=== PATIENT | female | born 1995 | race African-American/Black ===

== ENCOUNTER 2022-05-30 15:29 | Emergency (ER) | payer MEDICAID ==
[~2022-05-30] VITALS: Ht 165.1 cm; Wt 114.1 kg
[2022-05-30] MEDS ORDERED: ASPI-1450 PO (15:38)
[2022-05-30] MEDS ORDERED: PNV1TABL77 PO (15:38)
[2022-05-30] MEDS ORDERED: LIDOCAINE 5% TRANSDERMAL PATCH TD ONE (16:15)
[2022-05-30 16:20] LABS: APPEARANCE,URINE HAZY (CLEAR); BILIRUBIN,URINE NEGATIVE (NEGATIVE); GLUCOSE, URINE (UA) NEGATIVE (NEGATIVE); KETONES,URINE 40-60 mg/dL (NEGATIVE); LEUKOCYTE ESTERASE ,URINE NEGATIVE (NEGATIVE); NITRATE,URINE NEGATIVE (NEGATIVE); OCCULT BLOOD,URINE NEGATIVE (NEGATIVE); PROTEIN,URINE TRACE mg/dL (NEGATIVE); SPECIFIC GRAVITIY, URINE 1.023 (1.003-1.030); UROBILINOGEN,URINE <=1.0 mg/dL (<=1.0)
[2022-05-30 16:41] LABS: BASOPHILS % (AUTO) 0.3 % (0.0-2.0); EOSINOPHILS % (AUTO) 0.6 % (1.0-6.0); HEMATOCRIT 38.3 % (36-46); HEMOGLOBIN 12.6 g/dL (12.0-16.0); LYMPHOCYTES # (AUTO) 1.9 K/uL (1.0-4.8); LYMPHOCYTES % (AUTO) 17.7 % (22.0-44.0); MEAN CORPUSCULAR HEMOGLOBIN 27.2 pg (26.0-34.0); MEAN CORPUSCULAR HGB CONC 32.9 G/dL (31.0-37.0); MEAN CORPUSCULAR VOLUME 83 fL (80-100); MONOCYTES # (AUTO) 0.7 K/uL (0.1-1.0); NEUTROPHILS # (AUTO) 7.8 K/uL (1.8-7.7); NEUTROPHILS % (AUTO) 74.4 % (40.0-70.0); PLATELET COUNT (AUTO) 156 K/uL (150-450); RED BLOOD CELL COUNT(AUTO) 4.63 MIL/uL (4.00-5.20); RED CELL DISTRIBUTION WIDTH 13.5 % (11.5-14.5)
[2022-05-30 16:49] LABS: ANION GAP 10 mmol/L (8-16); CALCIUM, TOTAL 8.8 mg/dL (8.8-10.5); CARBON DIOXIDE 23 mmol/L (22-29); CHLORIDE 103 mmol/L (98-107); GLOMERULAR FILTR. RATE CALC > 60 mL/min (>60); GLUCOSE,RANDOM 112 mg/dL (70-110); POTASSIUM 3.1 mmol/L (3.5-5.1); SODIUM SERUM 136 mmol/L (136-145); UREA NITROGEN, BLOOD 6 mg/dL (7-18)
[2022-05-30 16:55] LABS: ALANINE AMINOTRANSFERASE 51 U/L (12-78); ALBUMIN 3.4 g/dL (3.4-5.0); ALKALINE PHOSPHATASE 48 U/L (46-116); ASPARTATE AMINOTRANSFERASE 37 U/L (15-37); BILIRUBIN,TOTAL 0.2 mg/dL (0.1-1.0); TOTAL PROTEIN, SERUM 6.8 g/dL (6.4-8.2)
[2022-05-30] MEDS ORDERED: POTASSIUM CHLORIDE 20 MEQ ER TABLET PO ONE (17:15)
[2022-05-30 17:35] LABS: HCG,QUANTITATIVE 8023 mIU/mL (0-6)
[2022-05-30 18:30] VITALS: BP 119/67
== END 2022-05-30 18:55 | disposition home or self-care (01) ==
LOC: EMS 15:41
DX: O26.92 Pregnancy related conditions, unspecified, second trimester (principal); M54.50 Low back pain, unspecified; Z3A.18 18 weeks gestation of pregnancy
CPT/HCPCS: 76770; 76805; 80053; 81003; 84702; 85025; 86901; 99284

== ENCOUNTER 2024-05-18 06:42 | Emergency (ER) | payer MEDICAID ==
[~2024-05-18] VITALS: Ht 165.1 cm; Wt 113.6 kg
[~2024-05-18 06:42] MED LIST: ASPI-1450 PO; PNV1TABL77 PO
[2024-05-18] MEDS: HYDROCODONE/ACETAMINOPHEN 5-325 MG TABLET PO ONE (07:59)
[2024-05-18] MEDS: KETOROLAC TROMETHAMINE 60 MG/2 ML VIAL IM ONE (07:59)
[2024-05-18] MEDS ORDERED: HYDR-4062 PO (08:56)
[2024-05-18] MEDS ORDERED: IBUP-1554 PO (08:56)
[2024-05-18 09:15] VITALS: BP 135/94; PULSE 91; RESP 18; O2SAT 100
== END 2024-05-18 09:27 | disposition home or self-care (01) ==
LOC: EMS 06:43
DX: S86.812A Strain of other muscle(s) and tendon(s) at lower leg level, left leg, initial encounter (principal); F12.90 Cannabis use, unspecified, uncomplicated; Z79.82 Long term (current) use of aspirin; Z90.89 Acquired absence of other organs; W13.8XXA Fall from, out of or through other building or structure, initial encounter; Y93.89 Activity, other specified; Y92.89 Other specified places as the place of occurrence of the external cause; Y99.8 Other external cause status
CPT/HCPCS: 99284; 29505; 84703; 36415; 73562; 96372; J1885

== ENCOUNTER 2024-07-12 16:01 | Emergency (ER) | payer MEDICAID ==
[~2024-07-12] VITALS: Ht 152.4 cm; Wt 113.6 kg
[~2024-07-12 16:01] MED LIST changes: +HYDR-4062 PO; +IBUP-1554 PO
[2024-07-12 16:13] VITALS: TEMP 98.3
[2024-07-12] MEDS: SODIUM CHLORIDE 0.9% 1,000 ML IV ONE (17:03)
[2024-07-12 17:14] LABS: BASOPHILS % (AUTO) 0.5 % (0.0-2.0); EOSINOPHILS % (AUTO) 0.3 % (1.0-6.0); HEMATOCRIT 43.3 % (36-46); HEMOGLOBIN 14.1 g/dL (12.0-16.0); LYMPHOCYTES # (AUTO) 1.4 K/uL (1.0-4.8); LYMPHOCYTES % (AUTO) 15.6 % (22.0-44.0); MEAN CORPUSCULAR HEMOGLOBIN 27.5 pg (26.0-34.0); MEAN CORPUSCULAR HGB CONC 32.5 G/dL (31.0-37.0); MEAN CORPUSCULAR VOLUME 85 fL (80-100); MONOCYTES # (AUTO) 0.6 K/uL (0.1-1.0); MONOCYTES % (AUTO) 6.8 % (2.0-9.0); NEUTROPHILS % (AUTO) 76.8 % (40.0-70.0); PLATELET COUNT (AUTO) 204 K/uL (150-450); RED BLOOD CELL COUNT(AUTO) 5.12 MIL/uL (4.00-5.20); RED CELL DISTRIBUTION WIDTH 13.8 % (11.5-14.5); WHITE BLOOD COUNT (AUTO) 9.2 K/uL (4.5-11.0)
[2024-07-12 17:23] LABS: ANION GAP 13 mmol/L (8-16); CALCIUM, TOTAL 8.5 mg/dL (8.8-10.5); CARBON DIOXIDE 26 mmol/L (22-29); CHLORIDE 107 mmol/L (98-107); CREATININE 0.99 mg/dL (0.60-1.30); GLOMERULAR FILTR. RATE CALC > 60 mL/min (>60); GLUCOSE,RANDOM 69 mg/dL (70-110); POTASSIUM 3.2 mmol/L (3.5-5.1); SODIUM SERUM 146 mmol/L (136-145); UREA NITROGEN, BLOOD 4 mg/dL (7-18)
[2024-07-12 17:36] LABS: HCG,QUANTITATIVE < 1 mIU/mL (0-6); LIPASE 16 U/L (16-77)
[2024-07-12 18:30] VITALS: BP 138/87; PULSE 89; RESP 18; O2SAT 98
== END 2024-07-12 19:03 | disposition home or self-care (01) ==
LOC: EMS 16:01
DX: E86.0 Dehydration (principal); R55 Syncope and collapse; F12.90 Cannabis use, unspecified, uncomplicated; Z79.82 Long term (current) use of aspirin; Z79.899 Other long term (current) drug therapy; Z90.89 Acquired absence of other organs
CPT/HCPCS: 99283; 96360; 80048; 83690; 84702; 85025; 36415; J7030; 99284

== ENCOUNTER 2025-01-07 04:03 | Emergency (ER) | payer MEDICAID ==
[~2025-01-07] VITALS: Ht 165.1 cm; Wt 113.6 kg
[~2025-01-07 04:03] MED LIST changes: -PNV1TABL77 PO
[2025-01-07 04:19] VITALS: BP 136/70; PULSE 90; RESP 18; TEMP 98.2; O2SAT 100
[2025-01-07 05:19] LABS: APPEARANCE,URINE CLEAR (CLEAR); GLUCOSE, URINE (UA) NEGATIVE (NEGATIVE); LEUKOCYTE ESTERASE ,URINE NEGATIVE (NEGATIVE); NITRATE,URINE NEGATIVE (NEGATIVE); OCCULT BLOOD,URINE NEGATIVE (NEGATIVE); PH,URINE DRUG SCREEN 6.0 (5.0-8.0); SPECIFIC GRAVITIY, URINE 1.005 (1.003-1.030)
[2025-01-07 05:26] LABS: ALCOHOL, URINE DRUG SCREEN POSITIVE (NEGATIVE); AMPHET/METH SCREEN,URINE NEGATIVE (NEGATIVE); BARBITURATE SCREEN, URINE NEGATIVE (NEGATIVE); CANNABINOID SCREEN,URINE POSITIVE (NEGATIVE); COCAINE SCREEN,URINE NEGATIVE (NEGATIVE); METHADONE SCREEN, URINE NEGATIVE (NEGATIVE)
[2025-01-07] MEDS ORDERED: IBUP-1492 PO (05:35)
[2025-01-07] MEDS: KETOROLAC TROMETHAMINE 30 MG/ML VIAL IM ONE (05:45)
== END 2025-01-07 06:14 | disposition home or self-care (01) ==
LOC: EMS 04:03
DX: R07.89 Other chest pain (principal); F12.90 Cannabis use, unspecified, uncomplicated; Z79.82 Long term (current) use of aspirin; Z79.899 Other long term (current) drug therapy; Z90.89 Acquired absence of other organs
CPT/HCPCS: 99284; 93005; 96372; 80307; 81003; J1885

== ENCOUNTER 2025-01-21 12:56 | Emergency (ER) | payer MEDICAID ==
[~2025-01-21] VITALS: Ht 165.1 cm; Wt 113.6 kg
[~2025-01-21 12:56] MED LIST changes: +IBUP-1492 PO
[2025-01-21 12:59] VITALS: TEMP 98.6
[2025-01-21] MEDS ORDERED: ETON68IM4 SD (13:04)
[2025-01-21] MEDS: ACETAMINOPHEN 325 MG TABLET PO ONE (15:49)
[2025-01-21 16:15] VITALS: BP 147/68; PULSE 98; RESP 16; O2SAT 99
[2025-01-21] MEDS: KETOROLAC TROMETHAMINE 30 MG/ML VIAL IM ONE (18:19)
[2025-01-21] MEDS ORDERED: TRAM50TA5 PO (18:25)
== END 2025-01-21 19:09 | disposition home or self-care (01) ==
LOC: EMS 12:56
DX: S93.402A Sprain of unspecified ligament of left ankle, initial encounter (principal); F12.90 Cannabis use, unspecified, uncomplicated; Z90.89 Acquired absence of other organs; W22.8XXA Striking against or struck by other objects, initial encounter; Y93.89 Activity, other specified; Y92.89 Other specified places as the place of occurrence of the external cause; Y99.8 Other external cause status
CPT/HCPCS: 99283; 73610; 96372; J1885